=== PATIENT | female | born 1960 | race Caucasian/White ===

== ENCOUNTER 2016-11-26 11:01 | Emergency (ER) | payer MEDICAID ==
[2016-11-26 11:25] VITALS: BP 136/71
[2016-11-26] MEDS ORDERED: Sodium Chloride 0.9% 1,000 ML IV SCH ×2 (11:45→13:00)
[2016-11-26] MEDS ORDERED: Thiamine 100 MG in Sodium Chloride 0.9% 100 ML IV ONE ×2 (11:46→12:30)
[2016-11-26] MEDS ORDERED: Ondansetron 4 MG/2 ML SDV IVPUSH ONE (11:46)
--- NOTE | 2016-11-26 12:04 | EDM.PDOC ---
[id number]: MED [facility] Time Seen by Provider: 11/26/16 11:05 Source: Reports: Patient Exam Limitations: Reports: No limitations - History of Present Illness INITIAL COMMENTS - FREE TEXT/NARRATIVE: Pt has been binge drinking for the past few weeks. She has been drinking for the past 4 days. She has consumed about 2 liters of whiskey in the last 4 days. She feels she is out of control. She is interested in going to detox. She was on antidepressants and stopped them 1 year ago, She definitely feels she needs them. Her depression is definitely worse. Onset of Symptoms: Reports: gradual Duration of Symptoms: Reports: Week(s): Associated Symptoms: Reports: depression, other ( she is not feeling suicidal. 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: Psychiatric History: Reports: Addiction, Anxiety, Depression, Psych Hospitalization(s), Suicide attempt - Past Surgical History GI Surgical History: Reports: Cholecystectomy, Hernia repair/other Social & Family History - Tobacco Use Smoking Status *Q: Heavy Tobacco Smoker Years of Tobacco use: 42 Packs/Tins Daily: 1 - Alcohol Use Days Per Week of Alcohol Use: 1 Number of Drinks Per Day: 2 Total Drinks Per Week: 2 - Recreational Drug Use Recreational Drug Use: No ED ROS GENERAL - Review of Systems Review Of Systems: See Below Constitutional: Reports: other ( Pt has not eaten for the past 3-4 days. ) HEENT: Reports: No symptoms Respiratory: Reports: No Symptoms Cardiovascular: Reports: No symptoms Endocrine: Reports: no symptoms GI/Abdominal: Reports: Nausea : Reports: no symptoms Musculoskeletal: Reports: no symptoms Skin: Reports: no symptoms ED EXAM, BEHAVIORAL HEALTH - Physical Exam Exam: See Below Text/Narrative:: Pt arrived with a history of heavy jose martin drinking and she wants help. Exam Limited By: Intoxication General Appearance: alert, no apparent distress Ears: normal TMs Nose: normal inspection Throat/Mouth: Normal inspection Head: atraumatic Neck: normal inspection Respiratory/Chest: no respiratory distress Cardiovascular: regular rate, rhythm GI/Abdominal: soft, non tender (Female) Exam: Deferred Rectal (Female) Exam: Deferred Back Exam: normal inspection Extremities: normal inspection Neurological: alert, oriented x 3 Psychiatric: other (pt is intoxicated. ) COURSE, BEHAVIORAL HEALTH COMP - Course Vital Signs: Last Vital Signs Temp 36.1 C 11/26/16 11:05 Pulse 84 11/26/16 11:05 Resp 15 11/26/16 11:05 BP 136/71 11/26/16 11:05 Pulse Ox 95 11/26/16 11:05 Orders, Labs, Meds: Active Orders 24 hr Category Date Time Status CULTURE URINE [RM] Stat Lab 11/26/16 12:11 Results Laboratory Tests 11/26/16 11/26/16 11/26/16 Range/Units 11:02 11:02 11:02 WBC 8.8 (4.5-11.0) K/uL RBC 4.38 (3.30-5.50) M/uL Hgb 15.2 H (12.0-15.0) g/dL Hct 43.8 (36.0-48.0) % MCV 100 H (80-98) fL MCH 35 H (27-31) pg MCHC 35 (32-36) % Plt Count 270 (150-400) K/uL Neut % (Auto) 52 (36-66) % Lymph % (Auto) 39 (24-44) % [place] % (Auto) 7 H (2-6) % Eos % (Auto) 1 L (2-4) % Baso % (Auto) 1 (0-1) % Sodium 143 (140-148) mmol/L Potassium 3.2 L (3.6-5.2) mmol/L Chloride 104 (100-108) mmol/L Carbon Dioxide 25 (21-32) mmol/L Anion Gap 17.2 H (5.0-14.0) mmol/L BUN 10 (7-18) mg/dL Creatinine 0.9 (0.6-1.0) mg/dL Est Cr Clr Drug Dosing 61.47 mL/min Estimated GFR (MDRD) > 60 (>60) Glucose 99 (74-106) mg/dL Calcium 8.1 L (8.5-10.1) mg/dL Total Bilirubin 0.6 (0.2-1.0) mg/dL AST 27 (15-37) U/L ALT 28 (12-78) U/L Alkaline Phosphatase 77 (46-116) U/L Total Protein 7.5 (6.4-8.2) g/dL Albumin 4.0 (3.4-5.0) g/dL Globulin 3.5 (2.3-3.5) g/dL Albumin/Globulin Ratio 1.1 L (1.2-2.2) Urine Color Urine Appearance Urine pH (4.5-8.0) Ur Specific [place] (1.008-1.030) Urine Protein (NEGATIVE) mg/dL Urine Glucose (UA) (NEGATIVE) mg/dL Urine Ketones (NEGATIVE) mg/dL Urine Occult Blood (NEGATIVE) Urine Nitrite (NEGATIVE) Urine Bilirubin (NEGATIVE) Urine Urobilinogen (NORMAL) mg/dL Ur Leukocyte Esterase (NEGATIVE) Urine RBC (0-5) Urine WBC (0-5) Ur Epithelial Cells Amorphous Sediment Urine Bacteria Urine Mucus Urine Opiates Screen (NEGATIVE) Ur Oxycodone Screen (NEGATIVE) Urine Methadone Screen (NEGATIVE) Ur Propoxyphene Screen (NEGATIVE) Ur Barbiturates Screen (NEGATIVE) Ur Tricyclics Screen (NEGATIVE) Ur Phencyclidine Scrn (NEGATIVE) Ur Amphetamine Screen (NEGATIVE) U Methamphetamines Scrn (NEGATIVE) Urine MDMA Screen (NEGATIVE) U Benzodiazepines Scrn (NEGATIVE) U Cocaine Metab Screen (NEGATIVE) U Marijuana (THC) Screen (NEGATIVE) Ethyl Alcohol 309 mg/dL 11/26/16 11/26/16 Range/Units 11:18 11:18 WBC (4.5-11.0) K/uL RBC (3.30-5.50) M/uL Hgb (12.0-15.0) g/dL Hct (36.0-48.0) % MCV (80-98) fL MCH (27-31) pg MCHC (32-36) % Plt Count (150-400) K/uL Neut % (Auto) (36-66) % Lymph % (Auto) (24-44) % [place] % (Auto) (2-6) % Eos % (Auto) (2-4) % Baso % (Auto) (0-1) % Sodium (140-148) mmol/L Potassium (3.6-5.2) mmol/L Chloride (100-108) mmol/L Carbon Dioxide (21-32) mmol/L Anion Gap (5.0-14.0) mmol/L BUN (7-18) mg/dL Creatinine (0.6-1.0) mg/dL Est Cr Clr Drug Dosing mL/min Estimated GFR (MDRD) (>60) Glucose (74-106) mg/dL Calcium (8.5-10.1) mg/dL Total Bilirubin (0.2-1.0) mg/dL AST (15-37) U/L ALT (12-78) U/L Alkaline Phosphatase (46-116) U/L Total Protein (6.4-8.2) g/dL Albumin (3.4-5.0) g/dL Globulin (2.3-3.5) g/dL Albumin/Globulin Ratio (1.2-2.2) Urine Color Yellow Urine Appearance Cloudy Urine pH 6.0 (4.5-8.0) Ur Specific [place] 1.010 (1.008-1.030) Urine Protein Negative (NEGATIVE) mg/dL Urine Glucose (UA) Normal (NEGATIVE) mg/dL Urine Ketones Negative (NEGATIVE) mg/dL Urine Occult Blood Moderate (NEGATIVE) Urine Nitrite Positive H (NEGATIVE) Urine Bilirubin Negative (NEGATIVE) Urine Urobilinogen Normal (NORMAL) mg/dL Ur Leukocyte Esterase Negative (NEGATIVE) Urine RBC 0-5 (0-5) Urine WBC 0-5 (0-5) Ur Epithelial Cells Few Amorphous Sediment Not seen Urine Bacteria Many Urine Mucus Not seen Urine Opiates Screen Negative (NEGATIVE) Ur Oxycodone Screen Negative (NEGATIVE) Urine Methadone Screen Negative (NEGATIVE) Ur Propoxyphene Screen Negative (NEGATIVE) Ur Barbiturates Screen Negative (NEGATIVE) Ur Tricyclics Screen Negative (NEGATIVE) Ur Phencyclidine Scrn Negative (NEGATIVE) Ur Amphetamine Screen Negative (NEGATIVE) U Methamphetamines Scrn Negative (NEGATIVE) Urine MDMA Screen Negative (NEGATIVE) U Benzodiazepines Scrn Negative (NEGATIVE) U Cocaine Metab Screen Negative (NEGATIVE) U Marijuana (THC) Screen Negative (NEGATIVE) Ethyl Alcohol mg/dL Medications Discontinued Medications Generic Name Dose Route Start Last Admin Trade Name Freq PRN Reason Stop Dose Admin Sodium Chloride 1,000 mls @ 999 mls/hr 11/26/16 11:45 11/26/16 12:06 Normal Saline IV 999 mls/hr ASDIRECTED ABEL Administration Thiamine HCl 100 mg/ Sodium 101 mls @ 200 mls/hr 11/26/16 12:30 11/26/16 12: 24 Chloride IV 11/26/16 13:00 200 mls/hr ONETIME ONE Administration Sodium Chloride 1,000 mls @ 999 mls/hr 11/26/16 13:00 11/26/16 13:31 Normal Saline IV 999 mls/hr ASDIRECTED ABEL Administration Ondansetron HCl 4 mg 11/26/16 11:46 11/26/16 12:20 Zofran IVPUSH 11/26/16 11:47 4 mg ONETIME ONE Administration Medical Clearance: 11/26/16 12:06 urine appears infected. She is dehydrated and is nauseated. Will give fluids and iv zoforan. 11/26/16 12:42 Pt has a etoh level greater then .3. She is dehydrated and appears to have a Uti Departure - Departure Time of Disposition: 17:10 Disposition: DC/Tfer to Psych Hosp/Unit 65 Condition: fair Clinical Impression: Intoxication, Acute alcohol abuse, Depression Instructions: Alcohol Intoxication, [id number] Referrals: PCP,None [Primary Care Provider] - Forms: ED Department Discharge Care Plan Goals: Pt needs to go to detox and arrangements were made to go to [facility] detox. She needs to resume her meds for depression-- abilify and trazadone. She does need to be seeing a counselor. Pt has a UTI and will be given a perscription for cipro 500mg bid for 7 days. - My Orders Last 24 Hours: My Active Orders 11/26/16 12:11 CULTURE URINE [RM] Stat - Assessment/Plan Last 24 Hours: My Active Orders 11/26/16 12:11 CULTURE URINE [RM] Stat
== END 2016-11-26 16:50 ==
LOC: JP.ED 11:01
DX: F10.129 Alcohol abuse with intoxication, unspecified (principal); F32.9 Major depressive disorder, single episode, unspecified; F41.9 Anxiety disorder, unspecified; F17.210 Nicotine dependence, cigarettes, uncomplicated; Z90.49 Acquired absence of other specified parts of digestive tract; Z98.890 Other specified postprocedural states; Z88.1 Allergy status to other antibiotic agents; Y90.8 Blood alcohol level of 240 mg/100 ml or more
CPT/HCPCS: 36415; 80053; 80305; 81001; 85025; 87086; 87088; 87186; 96361; 96365; 96375; 99284; 99285; G0480; J2405; J3411; J7030; J7040

== ENCOUNTER 2019-03-10 15:21 | Emergency (ER) | payer MEDICAID ==
[2019-03-10 15:49] VITALS: BP 142/91; PULSE 45
--- NOTE | 2019-03-10 16:47 | EDM.PDOCBH ---
ED HPI GENERAL MEDICAL PROBLEM - General Chief Complaint: Drug or Alcohol Abuse Stated Complaint: [facility] Time Seen by Provider: 03/10/19 16:30 Source of Information: Reports: Patient, Old Records, RN History Limitations: Reports: No Limitations - History of Present Illness INITIAL COMMENTS - FREE TEXT/NARRATIVE: 58 yo female presents requesting admission to [facility] for alcohol abuse. Drink vodka heavily. Family called ahead and [facility] beds. Has been drinking heavy since this past Friday. Denies street drug use. Does smoke. 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) (none) Back Pain Score (Numeric/FACES): 6 - Related Data Allergies Allergy/AdvReac Type Severity Reaction Status Date / Time amoxicillin [Amoxicillin] Allergy Shortness Verified 03/10/19 15:36 of Breath Home Meds: Home Meds Citalopram Hydrobromide [Celexa] 2 tab PO DAILY 06/17/17 [History] traZODone 1 tab PO BEDTIME 06/17/17 [History] 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: Musculoskeletal History: Reports: Back Pain, Chronic Psychiatric History: Reports: Addiction, Anxiety, Depression, Psych Hospitalization(s), Suicide Attempt - Past Surgical History GI Surgical History: Reports: Cholecystectomy, Hernia Repair/Other Social & Family History - Tobacco Use Smoking Status *Q: Current Every Day Smoker Years of Tobacco use: 46 Packs/Tins Daily: 1 - Caffeine Use Caffeine Use: Reports: Coffee, Soda - Alcohol Use Date of Last Drink: 03/10/19 Time of Last Drink: 14:00 - Recreational Drug Use Recreational Drug Use: No ED ROS GENERAL - Review of Systems Review Of Systems: See Below Constitutional: Reports: No Symptoms HEENT: Reports: No Symptoms Respiratory: Reports: No Symptoms Cardiovascular: Reports: No Symptoms GI/Abdominal: Reports: No Symptoms : Reports: No Symptoms Musculoskeletal: Reports: No Symptoms Skin: Reports: No Symptoms Neurological: Reports: Tremors (when she stops drinking) Psychiatric: Reports: No Symptoms ED EXAM, BEHAVIORAL HEALTH - Physical Exam Exam: See Below Exam Limited By: Intoxication (mild to moderate) General Appearance: Alert, WD/WN, No Apparent Distress Eye Exam: Bilateral Eye: Normal Inspection Ears: Normal External Exam, Normal Canal, Hearing Grossly Normal, Normal TMs Nose: Normal Inspection, No Blood Throat/Mouth: Normal Inspection, Normal Lips, Normal Oropharynx, Normal Voice, No Airway Compromise Head: Atraumatic, Normocephalic Neck: Normal Inspection, Non-Tender Respiratory/Chest: No Respiratory Distress, Lungs Clear, Normal Breath Sounds, No Accessory Muscle Use Cardiovascular: Regular Rate, Rhythm, No Edema GI/Abdominal: Normal Bowel Sounds, Soft, Non-Tender, No Distention Back Exam: Normal Inspection. No: CVA Tenderness (R), CVA Tenderness (L) Extremities: Normal Inspection, Normal Range of Motion, Non-Tender, No Pedal Edema Neurological: Alert, Normal Mood/Affect, CN II-XII Intact, Normal Cognition, No Motor/Sensory Deficits, Oriented x 3 Psychiatric: Alert, Normal Affect, Normal Cognition, Normal Mood Skin Exam: Warm, Dry, Intact, Normal color, No rash COURSE, BEHAVIORAL HEALTH COMP - Course Vital Signs: Last Vital Signs Temp 36.3 C 03/10/19 15:35 Pulse 45 L 03/10/19 15:35 Resp 20 03/10/19 15:35 BP 142/91 H 03/10/19 15:35 Pulse Ox 93 L 03/10/19 15:35 Orders, Labs, Meds: Laboratory Tests 03/10/19 03/10/19 Range/Units 16:06 16:12 Urine Opiates Screen Negative (NEGATIVE) Ur Oxycodone Screen Negative (NEGATIVE) Urine Methadone Screen Negative (NEGATIVE) Ur Propoxyphene Screen Negative (NEGATIVE) Ur Barbiturates Screen Negative (NEGATIVE) Ur Tricyclics Screen Negative (NEGATIVE) Ur Phencyclidine Scrn Negative (NEGATIVE) Ur Amphetamine Screen Negative (NEGATIVE) U Methamphetamines Scrn Negative (NEGATIVE) Urine MDMA Screen Negative (NEGATIVE) U Benzodiazepines Scrn Negative (NEGATIVE) U Cocaine Metab Screen Negative (NEGATIVE) U Marijuana (THC) Screen Negative (NEGATIVE) Ethyl Alcohol 166 mg/dL Departure - Departure Time of Disposition: 16:46 Disposition: Home, Self-Care 01 Condition: Fair Clinical Impression: Alcohol abuse Alcohol intoxication Qualifiers: Complication of substance-induced condition: with unspecified complication Qualified Code(s): F10.929 - Alcohol use, unspecified with intoxication, unspecified - Discharge Information *PRESCRIPTION DRUG MONITORING PROGRAM REVIEWED*: No *COPY OF PRESCRIPTION DRUG MONITORING REPORT IN PATIENT [place]: No Referrals: Sofia Stone CNM [Primary Care Provider] - Additional Instructions: Cleared for transport to [facility], daughter to drive her there.
== END 2019-03-10 16:54 | disposition home or self-care (01) ==
LOC: JP.ED 15:21
DX: F10.229 Alcohol dependence with intoxication, unspecified (principal); F41.9 Anxiety disorder, unspecified; F32.9 Major depressive disorder, single episode, unspecified; F17.210 Nicotine dependence, cigarettes, uncomplicated; Z79.899 Other long term (current) drug therapy; Z90.49 Acquired absence of other specified parts of digestive tract; Z88.1 Allergy status to other antibiotic agents; Y90.6 Blood alcohol level of 120-199 mg/100 ml
CPT/HCPCS: 36415; 80305; 99284; G0480

== ENCOUNTER 2024-04-21 06:14 | Day surgery (SDC) | payer MEDICARE ==
[2024-04-21] MEDS: Sodium Chloride 0.9% 1,000 ML IV SCH (07:12)
[2024-04-21] MEDS ORDERED: Neostigmine Methylsulfate 10 MG/10 ML MDV ONE (07:25)
[2024-04-21] MEDS ORDERED: Propofol 200 MG/20 ML SDV ONE (07:25)
[2024-04-21] MEDS ORDERED: fentaNYL 250 MCG/5 ML SDV ONE (07:25)
[2024-04-21] MEDS ORDERED: Dexamethasone 4 MG/ML SDV ONE (07:25)
[2024-04-21] MEDS ORDERED: Ondansetron 4 MG/2 ML SDV ONE (07:25)
[2024-04-21] MEDS ORDERED: Rocuronium 50 MG/5 ML Vial ONE ×2 (07:25→08:24)
[2024-04-21] MEDS ORDERED: Glycopyrrolate 0.2 MG/ML 5 ML MDV ONE (07:25)
[2024-04-21] MEDS: Albuterol/Ipratropium 3.0-0.5 MG/3 ML Neb Soln NEB ONE (07:28)
[2024-04-21] MEDS: Bupivacaine 0.5%/EPINEPHrine 1:200,000 50 ML MDV ONE (08:19)
[2024-04-21] MEDS: Clindamycin in 0.9 % Sod Chlor 600 MG in Premix Bag 1 BAG IV ONE (08:45)
[2024-04-21] MEDS: metroNIDAZOLE/Normal Saline 500 MG in Premix Bag 1 BAG IV ONE (08:46)
[2024-04-21] MEDS: Ropivacaine 35 ML, dexAMETHasone 8 MG, EPINEPHrine 0.4 MG, Sodium Chloride 0.9% 42.6 ML NERVRT SCH (08:47)
[2024-04-21] MEDS ORDERED: Lactated Ringers 1,000 ML ONE (09:07)
[2024-04-21] MEDS ORDERED: Ketorolac 30 MG/ML SDV ONE (10:01)
[2024-04-21] MEDS: Acetaminophen/HYDROcodone 325-5 MG Tab PO PRN (11:34)
[2024-04-21 11:58] VITALS: BP 96/54; PULSE 77
== END 2024-04-21 13:32 | disposition home or self-care (01) ==
LOC: JP.SDS 06:14
PROVIDERS: ATTEND Surgery
DX: K43.0 Incisional hernia with obstruction, without gangrene (principal); K21.9 Gastro-esophageal reflux disease without esophagitis; F17.210 Nicotine dependence, cigarettes, uncomplicated; Z88.1 Allergy status to other antibiotic agents; Z79.899 Other long term (current) drug therapy
CPT/HCPCS: 15734; 49616; 94640; A9270; C1713; C1781; J0171; J1100; J1596; J1836; J1885; J2405; J2704; J2710; J2795; J3010; J3490; J7030; J7120; 00790-QZ; J7620

== ENCOUNTER 2024-10-08 08:53 | Day surgery (SDC) | payer MEDICAID, MEDICARE ==
[2024-10-08] MEDS ORDERED: Propofol 200 MG/20 ML SDV ONE ×2 (09:16→10:31)
[2024-10-08] MEDS ORDERED: fentaNYL 50 MCG/ML SDV ONE (09:16)
[2024-10-08] MEDS ORDERED: Midazolam 1 MG/ML 2 ML SDV ONE (09:16)
[2024-10-08] MEDS: Lactated Ringers 1,000 ML IV SCH (09:41)
[2024-10-08 12:03] VITALS: BP 126/70; PULSE 65
== END 2024-10-08 12:05 | disposition home or self-care (01) ==
LOC: JP.SDS 08:53
PROVIDERS: ATTEND Surgery
DX: Z12.11 Encounter for screening for malignant neoplasm of colon (principal); D12.0 Benign neoplasm of cecum; F17.200 Nicotine dependence, unspecified, uncomplicated
CPT/HCPCS: 00811; 45385; 88305; J2250; J2704; J3010; J7120